=== PATIENT | female | born 1990 ===

== ENCOUNTER 2016-09-04 20:37 | Emergency (ER) | payer OTHER, MEDICAID ==
[~2016-09-04] VITALS: Ht 165.1 cm; Wt 96.8 kg
[~2016-09-04 20:37] MED LIST: ASC500 PO; CALC1CAP21 PO; FES300 PO; PREN1TAB47 PO
[2016-09-04 20:49] VITALS: BP 131/74; PULSE 110; RESP 18; O2SAT 97
--- NOTE | 2016-09-04 21:10 | ED.REPORT ---
HPI-Rash / Abscess Date of Service Sep 04, 2016 ED Provider: Olivier Mccauley MD Pt is a healthy 22 wk 26 y/o female presenting to the ED c/o itchy petechial rash over face onset about 18:00 today. Rash occurred after several episodes of nonbloody/nonbilious emesis which she associates with morning sickness. She has had no abdominal pain. She takes no blood thinners. Blood pressure has been normal during this . No history of - induced pancytopenia. This is her second and during her first she was found to be anemic but recent testing has been normal. She denies any recent illness. She denies any recent new topical medication use of her face. Nursing Notes Stated Complaint: RASH ON FACE Chief Complaint: Skin Rash/Abscess Nursing Notes Reviewed: Yes Allergies: Coded Allergies: latex (Verified Allergy, Mild, 09/04/16) Scheduled Vit/Fe Fumarate/Fa-Expunged Drug, Do (-Expunged Drug, Do Not Renew!) 1 Tab Tablet PO DAILY General Time Seen by MD: 21:05 Chief Complaint Rash Hx Obtained From: Patient Arrived By: Walk-in Onset Occurred: 1 - 4 hours ago Symptom Duration: Since onset Severity: Current: No pain currently Severity: Maximum: No pain Past Medical History Past Medical History Anemia during Past Surgical History None reported Smoking History Unknown if Ever Smoker Social History Alcohol Use: Denies alcohol use Ambulatory Status Independent Review of Systems Constitutional: Reports: Chills, Fever Ears / Nose / Throat: Denies: Throat swelling, Tongue swelling Respiratory: Denies: Non-productive cough, Shortness of breath Cardiovascular: Denies: Chest pain, Dyspnea on exertion GI: Reports: Nausea, Vomiting, Denies: Abdominal pain Musculoskeletal: Reports: Neck pain, Denies: Back pain Skin: Reports Itching, Reports Rash Allergy / Immune: Denies: Allergic reaction, Anaphylaxis Complete sys rev & neg: except as marked. Physical Exam Initial Vital Signs Vital Signs (First) Date Time Temp Pulse Resp B/P Pulse Ox O2 Delivery O2 Flow Rate FiO2 09/04/16 20:49 36.4 110 18 131/74 97 Room Air Initial VS: Reviewed Head / Eyes: Atraumatic, Normocephalic, PERRL ENT: Mucous membranes moist, Conjunctiva normal, No scleral icterus Respiratory: Breath sounds normal, Clear to auscultation, No respiratory distress Cardiovascular: Regular rate & rhythm, Heart sounds normal, Intact distal pulses Extremities: Vascular intact, Neuro intact, No swelling, No tenderness Neurologic: Alert, Oriented, Nonfocal Psychiatric: Mood/affect normal, Behavior normal, Normal thought content Skin: Warm, Dry, Intact Color / Condition: Positive: Rash present Rash / Lesion Notes: Fine petechial rash about face, forehead, and eyelids. Non-blanching. Only involves face and forehead. Minimally extends to the neck. Not present anywhere else. No petechia over the palate. Neck: Atraumatic, Supple, No meningismus, Full range of motion, No swelling, Non-tender Abdomen: Atraumatic, Soft, Non-tender, No guarding, No rebound Gravid uterus consistent with 22 wk Interpretation & Diagnostics Lab Results Interpretation Result Diagram: 09/04/16223209/04/162232 Test 09/04/16 22:33 White Blood Count 11.5th/mm3 (3.8-10.1) Red Blood Count 3.80mil/mm3 (3.90-5.20) Hemoglobin 12.0g/dL (12.0-15.6) Hematocrit 34.9% (35.0-46.0) Mean Corpuscular Volume 91.8fL (81-100) Mean Corpuscular Hemoglobin 31.6pg (27.0-35.0) Mean Corpuscular Hemoglobin Concent 34.4% (32.0-37.0) Red Cell Distribution Width 13.1% (12.3-15.4) Platelet Count 363bil/L (150-400) Neutrophils (%) (Auto) 83.3% (40-74) Lymphocytes (%) (Auto) 11.3% (14-46) Monocytes (%) (Auto) 4.8% (4-12) Eosinophils (%) (Auto) 0.2% (0-5) Basophils (%) (Auto) 0.2% (0-3) Prothrombin Time 9.7sec (8.1-12.5) Prothromb Time International Ratio 0.91ratio Sodium Level 135mEq/L (134-144) Potassium Level 4.0mEq/L (3.5-5.2) Chloride Level 101mEq/L (97-108) Carbon Dioxide Level 20mmol/L (18-29) Blood Urea Nitrogen 5mg/dL (6-20) Creatinine 0.44mg/dL (0.57-1.00) Estimat Glomerular Filtration Rate 248mL/min (>59) Glucose Level 111mg/dL (60-99) Calcium Level 8.3mg/dL (8.5-10.1) Total Bilirubin 0.3mg/dL (0.0-1.2) Aspartate Amino Transf (AST/SGOT) 22U/L (0-50) Alanine Aminotransferase (ALT/SGPT) 22U/L (0-32) Alkaline Phosphatase 74U/L (25-150) Total Protein 6.2g/dL (6.4-8.4) Albumin 3.5g/dL (3.4-5.0) Hold Martinez Top Tube Received (Received) Re-Eval/Medical Decision Med Decision/Clinical Course Pt is a healthy 22 wk 26 y/o female presenting to the ED c/o itchy petechial rash over face onset about 18:00 today. Rash occurred after several episodes of nonbloody/nonbilious emesis which she associates with morning sickness. The emergency department the patient is afebrile, hemodynamically stable, neurologically intact and without any significant hypertension. Examination revealed scattered petechiae involving the face though no rales on the body. Labs notable as below: CBC: Leukocytosis of 11.5, HCT of 34.9, platelets 363, otherwise unremarkable. CMP: unremarkable Coag studies normal Overall presentation most consistent with superficial facial petechiae related to forceful emesis. No evidence of coagulopathy. No evidence of thrombocytopenia. Patient neurologically intact and well appearing. No evidence of bruising or petechial rash elsewhere on her body. Neck supple with full range of motion, no fever, no meningismus. Presentation of suggestive of meningitis or acute infectious process. Patient reported feeling well. She did have mild nausea which was treated with Zofran. Follow-up and precautions were reviewed in detail and she is discharged in good condition. She will follow-up with her RESPIRATORY SERVICES MANAGER in the coming week. Re-Evaluation/Progress : Time of Eval: 23:21 Re-Evaluation/Progress Note: Pt rechecked. Informed pt of plan for treatment. Pt understands and agrees with plan for treatment. F/U instructions and RTER warnings given. All questions addressed. Counseled Regarding: Diagnosis, Lab results, Need for follow-up, When/why to return to ED Discharge & Departure Impression: Primary Impression: Petechiae Additional Impressions: Facial rash Vomiting Vomiting type: unspecified Vomiting Intractability: non-intractable Nausea presence: with nausea Qualified Code: R11.2 - Nausea with vomiting, unspecified Weeks of gestation: 22 weeks Qualified Code: Z3A.22 - 22 weeks gestation of Disposition: Home Discharge Condition All VS Reviewed: Yes Condition: Stable Patient Instructions: Acute Rash (ED) Additional Instructions: Thank you for seeking care at the emergency room. It is difficult for us to make definitive diagnoses in the ED but we believe that you are experiencing a facial petechia rash related to vomiting. Our primary goal today in the ED was to evaluate you for any life-threatening conditions. Your evaluation was reassuring. Your labs were normal. You should follow-up with your primary doctor in the next week. You should return to the ED immediately if you develop spreading or worsening rash, fevers, persistent or increased vomiting, cough, shortness of breath, chest pain, lightheadedness, weakness or any other concerning signs or symptoms. Thank you for letting us partake in your care today. Referrals: Beni Perez MD (PCP) Kathieibalyssa Attestation Portions of this note were transcribed by Curt Sullivan. I, Dr. Mccauley personally performed the history, physical exam and medical decision-making; I reviewed and confirmed the accuracy of the information in the transcribed note. Signed by Kory sOpina, 09/04/162229 copies to: Beni Perez MD, Beck O MD Sep 04, 2016 21:09 CURT SULLIVAN Sep 04, 2016 22:15
[2016-09-04 22:43] LABS: BASOPHILS % (AUTO) 0.2 % (0-3); EOSINOPHILS % (AUTO) 0.2 % (0-5); MONOCYTES % (AUTO) 4.8 % (4-12); Mean Corpuscular Hemoglobin 31.6 pg (27.0-35.0); Mean Corpuscular Volume 91.8 fL (81-100); NEUTROPHILS % (AUTO) 83.3 % (40-74); Platelet Count 363 bil/L (150-400)
[2016-09-04 22:59] LABS: INR 0.91 ratio
[2016-09-05 00:13] VITALS: BP 128/84; PULSE 84; RESP 16; O2SAT 98
== END 2016-09-05 00:14 | disposition home or self-care (01) ==
LOC: SED 20:37
DX: O99.712 Diseases of the skin and subcutaneous tissue complicating pregnancy, second trimester (principal); O21.2 Late vomiting of pregnancy; Z3A.22 22 weeks gestation of pregnancy; Z91.040 Latex allergy status

== ENCOUNTER 2017-01-13 17:33 | Inpatient (IN) | payer OTHER, MEDICAID ==
[~2017-01-13] VITALS: Ht 165.1 cm; Wt 103.9 kg
[~2017-01-13 17:33] MED LIST changes: -ASC500 PO; -CALC1CAP21 PO; -FES300 PO
[2017-01-13] MEDS ORDERED: Lactated Ringer's 500 ML IV ONE (18:45)
[2017-01-13] MEDS ORDERED: fentaNYL 2 mCg/mL-Bupiv 0.125% 100 ML EPIDURAL SCH (18:45)
[2017-01-13] MEDS ORDERED: Ondansetron 2 mg/mL 2 mL Inj IVPUSH PRN (18:45)
[2017-01-13] MEDS ORDERED: Atropine 1 mg/10 mL (Code) Syringe IVPUSH PRN (18:45)
[2017-01-13] MEDS ORDERED: EPHEDrine Sulfate 50 mg/mL Inj IVPUSH PRN (18:45)
[2017-01-13] MEDS ORDERED: Lactated Ringer's 1,000 ML IV PRN (18:54)
[2017-01-13] MEDS ORDERED: Sodium Chloride LOK Flush 10 mL Syringe IVFLUSH PRN (18:55)
[2017-01-13] MEDS ORDERED: Hemorrhage Kit, Post Partum XX ONE (18:55)
[2017-01-13] MEDS ORDERED: Oxytocin 30 Units/500 mL LR 30 UNITS in IV Premix 1 EACH IV PRN (18:55)
[2017-01-13] MEDS ORDERED: Carboprost 250 mCg/mL Inj IM PRN (18:55)
[2017-01-13] MEDS ORDERED: Methylergonovine 0.2 mg/mL Inj IM PRN (18:55)
[2017-01-13] MEDS ORDERED: Oxytocin 10 Unit/mL Inj IM PRN (18:55)
[2017-01-13 19:27] LABS: Mean Corpuscular Hemoglobin 31.2 pg (27.0-35.0); Mean Corpuscular Volume 88.3 fL (81-100)
[2017-01-13] MEDS: Lactated Ringer's 1,000 ML IV SCH (23:07)
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
--- NOTE | 2017-01-13 23:31 | PCM.HPANE ---
Patient Data Surgeon Admitting Provider:Berta Tracy MD Attending Provider:Berta Tracy MD Primary Care Physician:Noptori Other Provider: Reason for Visit Term Labor Ht/WT & BMI Body Mass Index Allergies Coded Allergies: latex (Verified Allergy, Mild, 09/04/16) Past Anesthesia History Anesthesia History: Denies:: Abnormal Airway, Anesthesia Reactions, Difficult Intubation, Fam Anesthesia Reaction, Fam Malignant Hypertherm, Malignant Hyperthermia Diabetes History Hx Diabetes?: No MRSA MRSA: No Medications Hypertension Medication: No Home Meds Incl Beta Maegan: No Reported Medications Vit/Fe Fumarate/Fa-Expunged Drug, Do (-Expunged Drug, Do Not Renew!)1 Tab Tablet Po Daily 01/08/11 History History of ENT Problems?: No HEENT History: Denies:: Abnormal Airway Cataracts Difficult Intubation Dysphagia Glaucoma Hearing Problem Sinus Problem TMJ Denture Type: None Teeth Condition: Within Normal Limits Hx of Heart Problems?: No Cardiovascular History: Denies:: AICD Abdominal Aortic Aneurism Atrial Fibrillation Cardiac Surgery Chest Pain Congestive Heart Failure Coronary Artery Disease Edema Heart Murmur Hypertension Irregular Heartbeat Pacemaker Peripheral Vascular Rheumatic Fever Thrombophlebitis Valvular Heart Disease Hx of Respiratory Problem?: No Respiratory History: Denies:: Asthma COPD Chest Surgery Cough Dyspnea Emphysema Hemoptysis Oxygen Administration Pneumonia Pulmonary Embolism Tuberculosis Use of C-PAP Machine Use of Inhalers / NEBS Hx Neurologic Problems?: No Neurological History: Denies:: Alzheimer's Disease CVA Dementia Dizziness Headaches Multiple Sclerosis Parkinson's Disease Peripheral Neuropathy Seizures TIA Hx of GI Problems?: No Hx of Problems?: No HX of Peritoneal Dialysis: No Female Hx: Positive for:: Currently Hx Musculoskeletal Problems?: No Hx of Psycho/Social Problems?: No Hx Surgeries?: No Hx Diabetes: No Hx Alcohol Use: NoHx Substance Use: No Smoking Status: Unknown if Ever Smoker Stop/Bang Risk Assessment Category Category 1A: Patient has history of documented sleep apnea, and HAS NOT received any narcotic, sedative or anesthesia administration during this stay. Category 1B: Patient has history of documented sleep apnea, and HAS received any narcotic , sedative or anesthesia administration during this stay Category 2: Patient has SUSPECTED Obstructive Sleep Apnea, and HAS received any narcotic , sedative or anesthesia administration during this stay. Category 3: Patient has SUSPECTED Obstructive Sleep Apnea and HAS NOT received narcotic, sedative or anesthesia administration during this stay. Category 4: Outpatient in Procedural Areas with known sleep apnea or who screen positive for High Risk via the STOP/BANG questionnaire. Exam Exam General Appearance: Alert, Oriented X3 HEENT/AIRWAY: MP 2, Neck Movement (FROM) Lungs: Clear to Auscultation, Clear to Percussion Heart: Exam Unremarkable, Regular Rate/Rhythm Plan Impression Patient chart reviewed, patient interviewed and anesthestic plan with risks, benefits, and alternatives discussed, and informed consent obtained. ASA Physical Status: ASA3 Severe Disease (morbid obesity) Anesthetic Plan: Epidural Bene/Risks/Altern/Consents: Yes HP Complete Prior to Induction: Yes Ramón Gomez MD Jan 13, 2017 18:45
[2017-01-14] MEDS ORDERED: Benzocaine (Dermoplast) 20% 60 Gm Spray TOPICAL PRN (05:05)
[2017-01-14] MEDS ORDERED: Oxytocin 30 Units/500 mL LR 30 UNITS in IV Premix 1 EACH IV PRN (05:05)
[2017-01-14] MEDS ORDERED: Oxytocin 10 Unit/mL Inj IM PRN (05:05)
[2017-01-14] MEDS ORDERED: Carboprost 250 mCg/mL Inj IM PRN (05:05)
[2017-01-14] MEDS ORDERED: Hemorrhage Kit, Post Partum XX ONE (05:05)
[2017-01-14] MEDS ORDERED: LANOlin HPA 7 Gm Ointment TOPICAL PRN (05:05)
[2017-01-14] MEDS ORDERED: Methylergonovine 0.2 mg/mL Inj IM PRN (05:05)
--- NOTE | 2017-01-14 05:25 | OP ---
[address] [address] OPERATIVE REPORT PATIENT: ALEXX AMBRIZ : 1990 MR#: [id number] ADMIT: 01/13/2017 JOB ID: [id number] DATE OF SURGERY: 01/14/2017 PREOPERATIVE DIAGNOSIS(ES): POSTOPERATIVE DIAGNOSIS(ES): SURGEON: Berta Tracy MD. DELIVERY NOTE: This is a 26-year-old female, 2, para 2, at 40 weeks plus 4 days, presents to [facility] for leaking of fluid since 9 o'clock yesterday morning. After admission, the patient got epidural for her labor pain which actually relieved her pain and Pitocin started after epidural and at same time IUPC FSE placed for obese difficult monitoring from external monitoring. The patient had a reassuring heart tracing and started to have regular contractions. She was noted to be fully dilated and has the urge to push. At that time, she was examined vaginally and noticed she is fully dilated and with a +2 station. The patient was instructed to push. With 3-4 contractions the delivered at RUBÉN position. The shoulder and chest delivered without difficulty. The was placed on mother's chest and noticed with a good tone and spontaneous crying. Delayed cord clamped and cut performed after the pulsation disappeared, regular cord blood collected. The placenta delivered spontaneously, completely and examined with three-vessel cord. After delivery of the placenta, a gush of blood noticed. Bimanual massage performed, Pitocin started and 800 mcg of Cytotec inserted to help the contraction of the uterus. Gradually the tone of the uterus increased, bleeding slowed down. The perineum examined with no laceration. The EBL during the delivery was about 300 cc. The score of the infant was 9 and 9. The weight was not available at dictation. All instrument, needles, laps and gauzes counted correct after delivery. The patient tolerated the delivery well.
[2017-01-14] MEDS: Witch Hazel-Glycerin Pads TOPICAL PRN ×2 (07:40→19:43)
[2017-01-14] MEDS ORDERED: Measles-Mumps-Rubella Vaccine 0.5 mL Inj SUBQ ONE (16:55)
[2017-01-14] MEDS: Sodium Chloride LOK Flush 10 mL Syringe IVFLUSH SCH (19:00)
[2017-01-14] MEDS: Lactated Ringer's 1,000 ML IV SCH ×3 (19:00→21:01)
[2017-01-15] MEDS: Sodium Chloride LOK Flush 10 mL Syringe IVFLUSH SCH ×2 (00:30→08:30)
[2017-01-15] MEDS: Lactated Ringer's 1,000 ML IV SCH ×2 (05:01→13:01)
[2017-01-15] MEDS ORDERED: IBUP800T28 PO (06:24)
[2017-01-15] MEDS ORDERED: DOCU-41 PO (06:24)
[2017-01-15] MEDS ORDERED: FERR-83 PO (06:24)
[2017-01-15] MEDS ORDERED: ASCO-294 PO (06:24)
--- NOTE | 2017-01-15 07:09 | PCM.DIOB ---
Obstetrical Disch Instruction Dates of Hospitalization Date of Hospital Admission Jan 13, 2017 at 18:01 Providers Admitting Physician: Berta Tracy MD Primary Care Physician: Love Attending Physician: Berta Tracy MD Discharge Diagnosis Discharge Diagnosis You had a baby. Problems: Diet Discharge Diet: No restrictions Activity Discharge Activity-General: Pelvic Rest for 6 weeks, Balance rest and activity , No lifting >10 pounds for 4-6 weeks Dressing and Incisional Care Hygiene: May shower, NO bathtub, hot tub or whirlpool, Perineal care Additional Instructions Discharge Instructions Continue your vitamin. Please take the iron and vitamin c together for your anemia. Iron can give you constipation so you have also been given a prescription for docusate to keep you regular. Be sure to follow up in 6 weeks at [facility] for your visit and you can discuss an IUD for control at that appointment. Pelvic rest for 6 weeks (nothing per vagina including intercourse, tampons) If you have a fever greater than 100.4, please call [facility]. There is always someone director of graduate admissions to talk to. If you have an increase in bleeding, call [facility]. If you have a lot of bleeding suddenly, especially if you have symptoms of dizziness & weakness with it, get emergency help. If you start experiencing extreme depression, especially if you feel that you are a danger to yourself or your family, seek emergency help. You have been through a lot -- BE SURE TO TAKE CARE OF YOURSELF. You have been sent home with the following prescriptions: - Colace 100 mg twice a day as needed for constipation. - Ferrous sulfate 325 mg every day. - Vitamin C 500 mg every day. Take with iron. - Ibuprofen 800mg take 1 tab every 8 hours as needed for pain. Take with a meal. [facility] in [facility] with [facility]. Follow Up Plan Follow-up Provider (F9): Berta Tracy MD Follow-up appointment: Weeks (6) Call your provider for: Fever or Chills, Shortness of breath, Heavy vaginal bleeding, Heavy bleeding, Epigastric pain, Excessive constipation, Vaginal discomfort, Red painful breasts, Other (painful swelling in your legs) Brittany Wilson DO Jan 15, 2017 07:08
--- NOTE | 2017-01-15 07:51 | PCM.DC.OB ---
Obstetrical Discharge Summary Date of Service Jan 15, 2017 Date of hospital admission Jan 13, 2017 at 18:01 Date of Discharge: Jan 15, 2017 Providers Admitting Physician: Berta Tracy MD Primary Care Physician: Noptori Attending Physician: Berta Tracy MD Diagnosis at Time of Discharge 26-year-old female 2, para 1 now para 2, at 40 weeks plus 4 days gestation, status post normal spontaneous vaginal delivery Problems: Invasive procedures Vaginal delivery Date of Procedure: Jan 14, 2017 Brief History and Physical: From the history and physical performed by Dr. Tracy on 01/13/2017: This is a 26-year-old female. She is 2, para 1, at 40 weeks plus 4 days. Presents to [facility] complaining of leaking of fluid since nine o'clock this morning. She had irregular contraction. During evaluation at triage it was noticed that she had of fluid with positive ROM Plus test, confirmed rupture of membranes. Contractions irregular and with category 1 tracing. She has no other complaints and discomfort. This patient has regular followups in our office. During her care, it was noted that patient has obesity and she also with a BMI of 35 in early . She had rubella and varicella both were nonimmune. During the ultrasound, there was noted echogenic intracardiac focus scan. Repeated ultrasound did not have the same finding. There was also noticed renal pyelectasis which was mild. Patient had cell-free DNA testing that showed average risk of Down syndrome. She also had negative CF testing result. In , it was also noted her blood type was A-positive. RPR nonreactive. HBsAg negative. HIV negative. Chlamydia and gonorrhea negative. One hour glucose test was 135. She was also noted to be GBS negative. Hospital Course: 26-year-old female 2, para 1 now para 2, at 40 weeks plus 4 days gestation, status post normal spontaneous vaginal delivery on 01/14/17 at 04: 36. She had a male with Apgars 9 and 9 weighing 4272 g. She did not have any lacerations. - She received MMR vaccine post - On day of discharge, she was eating and drinking well and urinating without issue. She was ambulating independently. She had light vaginal bleeding. She did not have dizziness, lightheadedness, chest pain, dyspnea, palpitations, nausea, vomiting, or pain in her legs. She was and baby was having difficulty with latching. Her vital signs were stable. On exam, she was awake, alert, and oriented, her heart was a regular rate and rhythm with no murmurs, gallops, or rubs, lungs were clear to auscultation, and legs were non- tender with mild edema to the level of the tibial tuberosity. Ascorbate Calcium (Vitamin C) 500 Mg Tablet 500 MG PO DAILY Prescribed by: UNA LOU DO Docusate Sodium (Colace) 100 Mg Capsule 100 MG PO BID PRN PRN For Constipation Prescribed by: UNA LOU DO Ferrous Sulfate (Ferrous Sulfate) 325 Mg Tablet 325 MG PO DAILY Prescribed by: UNA LOU DO Ibuprofen (Ibuprofen) 800 Mg Tablet 800 MG PO TID PRN PRN For Pain Prescribed by: UNA LOU DO Vit/Fe Fumarate/Fa-Expunged Drug, Do (-Expunged Drug, Do Not Renew!) 1 Tab Tablet PO DAILY (Reported) Una Lou DO Jan 15, 2017 07:10
[2017-01-15 09:49] VITALS: BP 101/58; PULSE 68; RESP 18
[2017-01-15 11:20] LABS: Mean Corpuscular Hemoglobin 31.2 pg (27.0-35.0); Mean Corpuscular Volume 92.5 fL (81-100)
[2017-01-15] MEDS ORDERED: TdaP Vaccine 0.5 mL Inj IM ONE (12:10)
== END 2017-01-15 14:15 | disposition home or self-care (01) | DRG 775 ==
LOC: FBCO 17:33 → FBC 18:01
PROVIDERS: ADMIT Obstetrics & Gynecology; ATTEND Obstetrics & Gynecology
PROC: 10E0XZZ Delivery of Products of Conception, External Approach (ICD-10-PCS; principal; 2017-01-14)
PROC: 10H073Z Insertion of Monitoring Electrode into Products of Conception, Via Natural or Artificial Opening (ICD-10-PCS; 2017-01-14)
DX: O99.213 Obesity complicating pregnancy, third trimester (principal); E66.09 Other obesity due to excess calories; Z3A.40 40 weeks gestation of pregnancy; Z68.38 Body mass index [BMI] 38.0-38.9, adult; Z37.0 Single live birth

== ENCOUNTER 2017-01-21 21:46 | Emergency (ER) | payer OTHER, MEDICAID ==
[~2017-01-21] VITALS: Ht 165.1 cm; Wt 95.9 kg
[~2017-01-21 21:46] MED LIST changes: +ASCO-294 PO; +DOCU-41 PO; +FERR-83 PO; +IBUP800T28 PO
[2017-01-21 22:04] VITALS: BP 122/77; PULSE 134; RESP 20; O2SAT 99
--- NOTE | 2017-01-21 22:15 | ED.REPORT ---
HPI-General Illness Date of Service Jan 21, 2017 ED Provider: Dr. Dumont 26 y/o female () with no pertinent hx presents to the ED with post- fever, onset yesterday. The pt had a non-complicated vaginal delivery a week ago. She also complains of lower abdominal discomfort, breast pain and erythema , worse on the left. She is . The pt denies lower extremity swelling, abnormal vaginal discharge, cough, sore throat and abscess. The pt also denies dx of group B strep. She states her baby had a rash on the head which they diagnosed with group B strep, though neither of them are taking antibiotics. Nursing Notes Stated Complaint: FEVER, CHILLS, BODY ACHES AFTER DELIVERY Chief Complaint: General Complaint Nursing Notes Reviewed: Yes Allergies: Coded Allergies: latex (Verified Allergy, Mild, 01/21/17) Scheduled Ascorbate Calcium (Vitamin C) 500 Mg Tablet 500 MG PO DAILY Cephalexin (Keflex) 500 Mg Capsule 500 MG PO QID Ferrous Sulfate (Ferrous Sulfate) 325 Mg Tablet 325 MG PO DAILY Vit/Fe Fumarate/Fa-Expunged Drug, Do (-Expunged Drug, Do Not Renew!) 1 Tab Tablet PO DAILY Scheduled PRN Docusate Sodium (Colace) 100 Mg Capsule 100 MG PO BID PRN PRN For Constipation Ibuprofen (Ibuprofen) 800 Mg Tablet 800 MG PO TID PRN PRN For Pain General Time Seen by MD: 22:14 Chief Complaint Fever Hx Obtained From: Patient Arrived By: Walk-in Sudden in Onset?: Yes Onset Occurred: Yesterday Symptom Duration: Since onset Location: : Abdomen Radiation: : Does not radiate Severity: Current: Mild Severity: Maximum: Mild Recent Healthcare: Recent doctor visit Similar Sx Previous: No Past Medical History Past Medical History Anemia during Past Surgical History None reported Smoking History Unknown if Ever Smoker Social History Alcohol Use: Denies alcohol use Other Social History: Good social support Ambulatory Status Independent Review of Systems Reports: breast pain and erythema, worse on the left. Denies: Abscess Full Review of Systems Constitutional: Reports: Fever Ears / Nose / Throat: Denies: Sore throat Respiratory: Denies: Non-productive cough Cardiovascular: Denies: Edema (lower extremity) GI: Reports: Abdominal pain Female: Denies: Vaginal discharge Complete sys rev & neg: except as marked. Physical Exam Vital Signs Vital Signs Date Time Temp Pulse Resp B/P Pulse Ox O2 Delivery O2 Flow Rate FiO2 01/22/17 01:16 38.0 113 16 100/62 98 Room Air 01/22/17 00:14 39 128 18 100/62 98 01/21/17 22:04 39.4 134 20 122/77 99 Room Air Initial VS: Reviewed Head / Eyes: Atraumatic, Normocephalic, PERRL ENT: Mucous membranes moist, Conjunctiva normal, No scleral icterus Neck: Supple, Non-tender, Full range of motion Extremities: Vascular intact, Neuro intact, No swelling, No tenderness Skin: Warm, Dry, No cyanosis Neurologic: Alert, Oriented, Nonfocal General/Constitutional: Awake, Alert, Cooperative Respiratory / Chest: Atraumatic, Breath sounds NL, Breath sounds = bilat, No respiratory distress, No rales, No rhonchi, No wheezing Breast: Positive: Erythema L, Erythema R Cardiovascular: Heart rate NL, Regular rhythm, Heart sounds NL, No gallop, No murmurs, No rubs Abdomen: Atraumatic, Soft, Non-tender, No guarding, No rebound Interpretation & Diagnostics Lab Results Interpretation Result Diagram: 01/21/172 01/21/17 2232 Test 01/21/17 22:32 01/21/17 23:11 01/21/17 23:16 01/22/17 01:41 White Blood Count 23.3th/mm3 (3.8-10.1) Red Blood Count 4.21mil/mm3 (3.90-5.20) Hemoglobin 13.2g/dL (12.0-15.6) Hematocrit 38.5% (35.0-46.0) Mean Corpuscular Volume 91.4fL (81-100) Mean Corpuscular Hemoglobin 31.4pg (27.0-35.0) Mean Corpuscular Hemoglobin Concent 34.3% (32.0-37.0) Red Cell Distribution Width 13.0% (12.3-15.4) Platelet Count 461bil/L (150-400) Neutrophils (%) (Auto) 89% (40-74) Lymphocytes (%) (Auto) 2% (14-46) Monocytes (%) (Auto) 5% (4-12) Eosinophils (%) (Auto) 4% (0-5) Basophils (%) (Auto) 0% (0-3) Prothrombin Time 10.5sec (8.1-12.5) Prothromb Time International Ratio 0.98ratio Activated Partial Thromboplast Time 28.5sec (22.8-33.0) Sodium Level 138mEq/L (134-144) Potassium Level 3.8mEq/L (3.5-5.2) Chloride Level 101mEq/L (97-108) Carbon Dioxide Level 21mmol/L (18-29) Blood Urea Nitrogen 9mg/dL (6-20) Creatinine 0.61mg/dL (0.57-1.00) Estimat Glomerular Filtration Rate 170mL/min (>59) Glucose Level 108mg/dL (60-99) Calcium Level 8.6mg/dL (8.5-10.1) Total Bilirubin 0.3mg/dL (0.0-1.2) Aspartate Amino Transf (AST/SGOT) 18U/L (0-50) Alanine Aminotransferase (ALT/SGPT) 20U/L (0-32) Alkaline Phosphatase 161U/L (25-150) Total Protein 6.7g/dL (6.4-8.4) Albumin 3.5g/dL (3.4-5.0) Procalcitonin 0.19ng/mL (0.00-0.08) Lactic Acid Level 1.4mmol/L (0.4-2.0) Hold Urine Received (Received) Urine Color Yellow (YELLOW) Urine Appearance Hazy (CLEAR,HAZY) Urine pH 6.5 (5.0-8.0) Urine Specific [place] 1.005 (1.003-1.035) Urine Protein Negativemg/dL (NEG,TRACE) Urine Glucose (UA) Negativemg/dL (NEGATIVE) Urine Ketones Negativemg/dL (NEGATIVE) Urine Occult Blood Large (NEGATIVE) Urine Nitrite Negative (NEGATIVE) Urine Bilirubin Negative (NEGATIVE) Urine Urobilinogen 1.0mg/dL (NORMAL) Urine Leukocyte Esterase Moderate (NEGATIVE) Urine RBC 3-10/hpf (0-2) Urine WBC 11-50/hpf (0-5) Urine Epithelial Cells Moderate/hpf (NONE-MOD) Urine Crystals None seen (NONE SEEN) Urine Bacteria Few/hpf (NONE-FEW) Urine Hyaline Casts None/lpf (NONE) Urine Granular Casts None seen (NONE SEEN) Urine Waxy Casts None seen (NONE SEEN) Urine Red Blood Cell Casts None seen (NONE SEEN) Urine White Blood Cell Casts None seen (NONE SEEN) Urine Mucus None seen (None Seen) Urine Trichomonas None seen (NONE SEEN) Urine Yeast None (NONE SEEN) Urinalysis Comment None Urine Culture Reflexed Indicated X-Ray Chest Interpretation Chest Xray Interpretation: Normal View: Portable, AP & lat Interpretation / Wet Read by: Wet read ED physician Re-Eval/Medical Decision Med Decision/Clinical Course 26-year-old fever tender breasts with erythema notable on the upper portions of both. She has incidental UTI also. Begun with Keflex 4 times a day after Ancef given IV here. Time of Eval: 22:30 Re-Evaluation/Progress Note: Rechecked pt. Discussed diagnosis and plan to discharge. Pt understands and agrees with the plan. F/U instruction and RTER warning given. All questions addressed. Counseled Regarding: Diagnosis, Lab results, Need for follow-up, When/why to return to ED Discharge & Departure Primary Impression: Mastitis Additional Impressions: Urinary tract infection fever Disposition: Home Discharge Condition All VS Reviewed: Yes Condition: Stable Patient Instructions: Mastitis (ED) Additional Instructions: Thank you for entrusting us with your care today. Continue breast feeding or pump if necessary. Drink lots of fluid. Pedialyte or low carb Powerade or Gatorade would be good choices. Tylenol or ibuprofen are safe for discomfort and fever. Begin Keflex four times daily for ten days. Heating pad or warm soaks to the breast or four times daily can be helpful. Follow-up with your [facility] [employer]. Referrals: Berta Tracy MD (Family) Scribe Attestation Portions of this note were transcribed by Mendoza Gibson. I,, personally performed the history, physical exam and medical decision-making;I reviewed and confirmed the accuracy of the information in the transcribed note. Signed by Kory Reese. 01/21/17 copies to: Berta Tracy MD, Christopher W MD Jan 21, 2017 22:15 Mendoza Gibson Jan 21, 2017 22:32
[2017-01-21] MEDS ORDERED: 0.9% Sodium Chloride 1,000 ML IV ONE (22:20)
[2017-01-21 22:38] LABS: Mean Corpuscular Hemoglobin 31.4 pg (27.0-35.0); Mean Corpuscular Volume 91.4 fL (81-100); Platelet Count 461 bil/L (150-400)
[2017-01-21 22:54] LABS: BASOPHILS % (AUTO) 0 % (0-3); EOSINOPHILS % (AUTO) 4 % (0-5); MONOCYTES % (AUTO) 5 % (4-12); NEUTROPHILS % (AUTO) 89 % (40-74)
[2017-01-21 23:08] LABS: INR 0.98 ratio
[2017-01-21] MEDS ORDERED: CeFAZolin Inj 2 GM in IV Premix 1 EACH IV ONE (23:30)
[2017-01-21] MEDS ORDERED: CEPH-512 PO (23:32)
[2017-01-22 00:14] VITALS: BP 100/62; PULSE 128; RESP 18; O2SAT 98
[2017-01-22] MEDS ORDERED: 0.9% Sodium Chloride 1,000 ML IV ONE (00:35)
[2017-01-22 01:16] VITALS: BP 100/62; PULSE 113; RESP 16; O2SAT 98
[2017-01-22 01:53] LABS: APPEARANCE,URINE HAZY (CLEAR,HAZY); COLOR,URINE YELLOW (YELLOW); OCCULT BLOOD,URINE LARGE (NEGATIVE); PH,URINE 6.5 (5.0-8.0)
--- NOTE | 2017-01-22 08:20 | DRSVH ---
PROCEDURE: X-RAY CHEST, TWO VIEWS ([id number]) INDICATIONS: fever post TECHNIQUE: 2 views of the chest were acquired. COMPARISON: None. FINDINGS: Surgical changes and devices: None. Lungs and pleura: No pleural effusions or pneumothorax. Lungs are clear. Mediastinum: Mediastinal contours are normal. Heart size is normal. Bones and chest wall: No suspicious bony abnormalities. Soft tissues appear unremarkable. IMPRESSION: 1. No acute cardiopulmonary disease. Dictated by: Alvin Prince M.D. on 01/22/2017 at 8:19 Approved by: Alvin Prince M.D. on 01/22/2017 at 8:19
== END 2017-01-22 01:13 | disposition home or self-care (01) ==
LOC: SED 22:04
DX: N61.0 Mastitis without abscess (principal); N39.0 Urinary tract infection, site not specified; O86.4 Pyrexia of unknown origin following delivery; Z91.040 Latex allergy status
CPT/HCPCS: 36415; 71020; 80053; 81000; 83605; 84145; 85025; 85610; 85730; 87040; 87086; 87088; 96365; 99285; J0690; J7030